=== PATIENT | female | born 1960 | race Caucasian/White ===

== ENCOUNTER 2017-08-30 12:30 | Emergency (ER) | payer OTHER ==
[~2017-08-30] VITALS: Ht 157.5 cm; Wt 86.2 kg
[2017-08-30] MEDS ORDERED: HYZAAR 100-12.1 EACH (12:39)
== END 2017-08-30 18:52 | disposition home or self-care (01) ==
LOC: ER 12:30
DX: N20.0 Calculus of kidney (principal); K57.30 Diverticulosis of large intestine without perforation or abscess without bleeding

== ENCOUNTER 2018-12-12 15:21 | Emergency (ER) | payer OTHER ==
[~2018-12-12] VITALS: Ht 157.5 cm; Wt 87.5 kg
[~2018-12-12 15:21] MED LIST: GABAPENTIN600 MG PO; HYZAAR 100-12.1 EACH; HYZAAR 100-251 EACH PO; PRILOSE PO
== END 2018-12-12 18:37 | disposition home or self-care (01) ==
LOC: ER 15:21
DX: S13.4XXA Sprain of ligaments of cervical spine, initial encounter (principal); S33.5XXA Sprain of ligaments of lumbar spine, initial encounter; M62.830 Muscle spasm of back; V49.9XXA Car occupant (driver) (passenger) injured in unspecified traffic accident, initial encounter; Y93.89 Activity, other specified; Y92.488 Other paved roadways as the place of occurrence of the external cause; Y99.8 Other external cause status

== ENCOUNTER 2018-12-19 05:00 | Day surgery (SDC) | payer OTHER ==
[2018-12-19] MEDS ORDERED: MACROBID 100 M100 MG PO (10:16)
[2018-12-19] MEDS ORDERED: ACETAMINOPHEN-1 EAC2 PO (10:17)
== END 2018-12-19 13:45 | disposition home or self-care (01) ==
LOC: CIR.AMB 05:00
DX: N39.3 Stress incontinence (female) (male) (principal)
CPT/HCPCS: 57288; C1771